=== PATIENT | male | born 1985 | race Hispanic/Latino ===

== ENCOUNTER 2018-01-20 01:50 | Emergency (ER) | payer OTHER ==
[2018-01-20] MEDS ORDERED: Ondansetron HCl/PF 4 MG/2 ML Vial ONE (02:44)
[2018-01-20] MEDS ORDERED: Morphine 4 MG/ML VIAL ONE (02:44)
--- NOTE | 2018-01-20 08:29 | RAD ---
TWO VIEWS LEFT TIBIA/FIBULA: Comparison: None. History: Fall with left leg pain. FINDINGS: Two views of the left tibia/fibula shows an oblique fracture through the distal diaphysis of the tibi a. There is a spiral fracture of the proximal fibula neck. Surrounding soft tissue swelling is seen. IMPRESSION: Left tibia and fibula fractures as above. POS: [facility]
== END 2018-01-20 03:39 | disposition short-term general hospital (02) ==
LOC: MADERS 01:50
DX: S82.832A Other fracture of upper and lower end of left fibula, initial encounter for closed fracture (principal); S82.302A Unspecified fracture of lower end of left tibia, initial encounter for closed fracture; W03.XXXA Other fall on same level due to collision with another person, initial encounter; Y99.8 Other external cause status
CPT/HCPCS: 96374; 96375; J2270; J2405; J7620